=== PATIENT | male | born 1990 | race African-American/Black ===

== ENCOUNTER 2022-07-12 17:24 | Emergency (ER) | payer MEDICAID, SELFPAY ==
--- NOTE | ~2022-07-12 | XR_ITS ---
XR wrist RT min 3V DATE: 07/12/2022 18:01 INDICATION: Fall. Right wrist injury, pain TECHNIQUE: 3 views COMPARISON: None FINDINGS: No fracture, dislocation, periosteal reaction or bone destruction, joint space narrowing, c hondrocalcinosis or erosive change. IMPRESSION: Negative Reviewed, dictated and finalized at location A. IMPRESSION: Negative
[2022-07-12 17:26] VITALS: BP 154/86; PULSE 99; RESP 18; TEMP 37; O2SAT 98
[2022-07-12] MEDS: HYDROcodone/acetaminophen (*CRX) 5-325 MG TABLET 1 TAB PO (19:55)
[2022-07-12] MEDS: IBUPROFEN 400 MG TABLET 800 MG PO (19:55)
--- NOTE | 2022-07-12 20:16 | ED.UPPEXIN ---
HPI - Extremity Injury (Upper) General Chief Complaint: Extremity Injury, Upper Stated Complaint: RIGHT WRIST INJURY Time Seen by Provider: 07/12/22 19:33 Source: patient and RN notes reviewed Mode of arrival: ambulatory Limitations: no limitations History of Present Illness HPI narrative: This is a 31 year old right hand dominant male who presents for evaluation of right wrist pain. Patient states yesterday he accidentally tripped and he broke his fall with right arm. He states his right wrist was hyperextended. HE had mild pain last night but he woke up with right wrist swelling and worsening pain this morning. He has not taken any medication and tried any treatment such as ice therapy. He rates his pain as 9/10 Related Data Allergies Allergy/AdvReac Type Severity Reaction Status Date / Time No Known Allergies Allergy Verified 07/12/22 19:23 [facility] Past Medical History Medical History (Updated 07/12/22 @ 20:24 by Magdalena Bianchi MD) Patient denies medical problems Surgical History Surgical History (Updated 07/12/22 @ 20:19 by Magdalena Bianchi MD) No pertinent past surgical history Social History Social History (Updated 07/12/22 @ 20:19 by Magdalena Bianchi MD) Smoking status: Current every day smoker Exam Const: General: alert Nutritional Appearance: well nourished Orientation/consciousness: patient oriented x3 Limitations: no limitations Other: patient is mild distress due to pain HENMT: Head: normal to inspection Mouth: Yes Normal oral and palatal mucosa present Eyes: EOM: EOMs intact bilaterally Resp: Effort & Inspection: normal respiratory effort Cardio: Other: strong right radial pulse Skin: General skin exam: normal color Rashes: no rashes Wounds: no wounds Neuro: General: patient oriented x3, moves all extremities and CN's II-XI intact bilaterally Cranial nerves: Yes Nystagmus not present Speech: normal speech Gait exam (Neuro): Normal gait present Extrem: General: no pedal edema Other: right dorsal wrist tenderness and snuff box tenderness. PAtient having difficulty extending at wrist due to pain, no significant swelling Psych: Mental Status: mental status grossly normal Affect: normal affect Attitude: cooperative Course Course Emergency Course: Patient presented with right wrist injury. XRay ordered and showed no acute fractures. I ordered for patient to have ibuprofen 800 mg PO and norco 5/235 mg in ER. I discussed option with patient to get thumb spica splint at store . He request to have splint to be done in ER Nursing staffto place splint. He states he does not have PCP so will give ortho referral and PCP list Reevaluation(s) Reevaluation #1: I discussed with patient xray did not show any fractures. He understands plan to discharge Date: 07/12/22 Time: 20:21 Vital Signs Vital signs: Vital Signs Temperature 98.6 F 07/12/22 17:26 Pulse Rate 99 07/12/22 17:26 Respiratory Rate 18 07/12/22 17:26 Blood Pressure 154/86 H 07/12/22 17:26 Pulse Oximetry 98 07/12/22 17:26 Oxygen Delivery Room Air 07/12/22 17:26 Temperature 98.6 F 07/12/22 17:26 Pulse Rate 99 07/12/22 17:26 Respiratory Rate 18 07/12/22 17:26 Blood Pressure 154/86 H 07/12/22 17:26 Pulse Oximetry 98 07/12/22 17:26 Oxygen Delivery Room Air 07/12/22 17:26 MDM - Extremity Injury (Upper) Differential Diagnosis Differential diagnosis: Likely sprain and strain of wrist, fracture of hand and other (occult scaphoid fracture, wrist contusion) Imaging Data Radiologist's impression: ITS Impressions Wrist X-Ray 07/12/22 18:12 IMPRESSION: Negative Discharge Plan Discharge Clinical Impression: Right wrist sprain Patient Disposition: Home, Self-Care Condition: Stable Instructions: Wrist Injury (ED), Splint Care (ED), Wrist Sprain (ED) Additional Instructions: Today you were evaluation for right wrist injury. your xray was
--- NOTE | 2022-07-29 18:35 | PC.NURSE ---
LATE ENTRY This note is being entered to document information to the patient's record. The following information was omitted on [07/12/22], by [Janie Nicole RN]. Right thumb spica splint was applied by this RN.
== END 2022-07-12 21:07 | disposition home or self-care (01) ==
PROVIDERS: Emergency Provider General Practice
DX: S63.501A Unspecified sprain of right wrist, initial encounter (principal); F17.200 Nicotine dependence, unspecified, uncomplicated; W01.0XXA Fall on same level from slipping, tripping and stumbling without subsequent striking against object, initial encounter
CPT/HCPCS: 29125; 73110; 99283; A4565; A9270